=== PATIENT | male | born 2000 | race Hispanic/Latino ===

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

== ENCOUNTER 2024-09-08 15:07 | Emergency (ER) | payer BC, OTHER ==
[~2024-09-08] VITALS: Ht 180.3 cm; Wt 51.9 kg
--- NOTE | 2024-09-08 15:37 | ERN ---
General Chief Complaint: Nausea,Vomiting,Diarrhea Stated Complaint: NVD History of Present Illness Initial Comments This is a case of a 24-year-old male with no significant past medical history who presented to the ER with the complaints of chills, 3 vomiting episodes, nausea, headache and dizziness since 5 a.m. in the morning. He also mentioned having fever, sore throat, cold, 1 episode of nonbloody diarrhea yesterday night which have subsided now. He also mentions experiencing lower abdominal pain. He denies chest pain, palpitations, burning sensation when urinating/increased frequency of urination, cough, abnormal penile discharge, genital rashes. He admits to using tobacco and marijuana daily. Allergies: Coded Allergies: No Known Drug Allergies (Unverified Allergy, Unknown, 03/03/21) Home Meds Active Scripts Ibuprofen (Ibuprofen) 600 Mg Tablet, 600 MG PO Q6H PRN for PAIN, #15 TAB Prov:ALMA OWEN 03/03/21 Mupirocin (Bactroban 2% Oint) 1 Appl/Gm Oint, 1 APPL TP BID for 10 Days, #30 G Prov:ALMA OWEN 03/03/21 Past Medical History Past Medical History: No Pertinent History Past Surgical History: None Social History Social History: Lives with family ROS Dictation CONSTITUTIONAL: Chills, no fever, no weakness, no diaphoresis, no malaise. HEAD/FACE: No signs of trauma. EENT: No eye pain, no blurred vision, no tearing, no double vision, no ear pain, no ear discharge, no nose pain, no nasal congestion, sore throat or, no throat swelling, no mouth pain. RESPIRATORY: No cough, no orthopnea, no SOB, no stridor, no wheezing. CARDIOVASCULAR: No chest pain, no edema, no palpitations, no syncope. GASTROINTESTINAL/ABDOMINAL: No abdominal pain, no constipation, no diarrhea, no nausea, no vomiting. GENITOURINARY: LOWER ABDOMINAL AND PELVIC pain, No abnormal discharge, no dysuria, no frequent urination, no hematuria. No complaints of pain in the genitals. MUSCULOSKELETAL: No back pain, no gout, no joint pain, no joint swelling, no muscle pain, no muscle stiffness, no neck pain. INTEGUMENTARY: No change in color, no change in hair/nails, no dryness, no lesion, no lumps, no rash. NEUROLOGICAL/PSYCH: No anxiety, not depressed, no emotional problem, no headache, no numbness, no pre-existing deficit, no history of seizures, no tremors, no weakness. HEMATOLOGIC/LYMPHATIC: no history of blood clots, no apparent bleeding, no bruising, glands not swollen. All Systems Negative, Except as Noted. Physical Exam Physical Exam Dictation Physical Exam Dictation VITAL SIGNS: Reviewed. GENERAL APPEARANCE: Alert, oriented x3, no acute distress, underweight HEAD AND FACE: Non-traumatic. EYES: PERRL, pink conjunctivas, eyelid no trauma, anterior chamber clear. EARS: Pinnas intact and no signs of trauma or erythema. Ear canals clear and no discharge. TMs no erythema. NOSE: No discharge, no bleeding. OROPHARYNX: Mouth normal, tongue pink. Pharynx clear, no erythema. Tonsils no exudates, no abscesses noted. Mucous membrane moist. NECK: Supple, non-tender, no thyromegaly, no masses, no JVD, no bruits. BREAST: Deferred. CHEST: No tenderness, no crepitus, no paradoxical movement, no retractions. LUNGS: Clear, well-ventilated, symmetric, no rales, no wheezing, no rhonchi, no stridor, good breath sounds bilaterally. HEART: Regular rate, regular rhythm, no murmur, no gallops. VASCULAR: No peripheral edema. ABDOMEN: Soft, positive bowel sounds, nondistended, no guarding, nontender, no rebound RECTAL: Deferred. GENITAL: Deferred. NEUROLOGICAL: Normal speech, gross motor function intact, gross sensory function intact. MUSCULOSKELETAL: Neck nontender, full range of motion, back nontender, full range of motion. EXTREMITIES: Nontender, full range of motion. SKIN: Color pink, dry, no turgor, no rash, no lacerations, no abrasions, no contusions. LYMPHATICS: Deferred. Results Laboratory and Microbiology Lab and Micro Result Laboratory Tests Test 09/08/24 15:32 09/08/24 17:10 White Blood Count 11.3 K/uL (4.8-10.8) H Red Blood Count 5.49 MIL/uL (4.50-6.20) Hemoglobin 16.8 g/dL (14.0-18.0) Hematocrit 48.1 % (42-54) Mean Corpuscular Volume 87.6 fL (79-99) Mean Corpuscular Hemoglobin 30.6 pg (27.0-33.0) Mean Corpuscular Hemoglobin Concent 34.9 g/dL (32.0-36.0) Red Cell Distribution Width 12.2 % (11.0-15.5) Platelet Count 253 K/uL (130-400) Mean Platelet Volume 10.8 fL (7.5-10.5) H Immature Granulocyte % (Auto) 0.4 % (0-1) Neutrophils (%) (Auto) 90.8 % (40.0-77.0) H Lymphocytes (%) (Auto) 4.9 % (21.0-51.0) L Monocytes (%) (Auto) 2.7 % (3.0-13.0) L Eosinophils (%) (Auto) 0.4 % (0.0-8.0) Basophils (%) (Auto) 0.8 % (0.0-5.0) Neutrophils # (Auto) 10.3 K/uL (1.8-7.7) H Lymphocytes # (Auto) 0.6 K/uL (1.0-4.8) L Monocytes # (Auto) 0.3 K/uL (0.1-1.0) Eosinophils # (Auto) 0.05 K/uL (0.00-0.70) Basophils # (Auto) 0.09 K/uL (0.00-0.20) Absolute Immature Granulocyte (auto 0.04 K/uL (0-1) Nucleated Red Blood Cells 0.0 % (0.0-0.19) White Cell Morphology Comment See comments Sodium Level 142 mmol/L (136-145) Potassium Level 4.8 mmol/L (3.5-5.1) Chloride Level 103 mmol/L (101-111) Carbon Dioxide Level 28 mmol/L (21-32) Blood Urea Nitrogen 9 mg/dL (7-18) Creatinine 0.8 mg/dL (0.5-1.3) Glomerular Filtration Rate Calc 128 mL/min (>90) Random Glucose 113 mg/dL (70-105) H Total Calcium 10.0 mg/dL (8.5-10.1) Urine Color YELLOW (YELLOW) Urine Appearance CLEAR (CLEAR) Urine pH 6.5 (5.0-8.0) Urine Specific [place] 1.031 (1.001-1.031) Urine Protein 30 mg/dL (NEGATIVE) H Urine Glucose (UA) NEGATIVE mg/dL (NEGATIVE) Urine Ketones 100 mg/dL (NEGATIVE) H Urine Occult Blood NEGATIVE (NEGATIVE) Urine Nitrate NEGATIVE (NEGATIVE) Urine Bilirubin NEGATIVE mg/dL (NEGATIVE) Urine Urobilinogen 0.2 mg/dL (0.2-1.0) Urine Leukocyte Esterase NEGATIVE Clem/uL Urine RBC 2-5 /HPF (0-1) H Urine WBC 2-5 /HPF (0-1) H Urine Squamous Epithelial Cells RARE /HPF (0-2) Urine Bacteria None /HPF (None Seen) Urine Opiates Screen NEGATIVE (NEGATIVE) Urine Barbiturates Screen NEGATIVE (NEGATIVE) Urine Phencyclidine Screen NEGATIVE (NEGATIVE) Urine Amphetamines Screen NEGATIVE (NEGATIVE) Urine Benzodiazepines Screen NEGATIVE (NEGATIVE) Urine Cocaine Screen NEGATIVE (NEGATIVE) Urine Marijuana (THC) Screen POSITIVE (NEGATIVE) H MDM MDM Potential differential diagnoses include: Gastroenteritis Substance abuse UTI Assessment: We will order CBC to rule any anemia, infections and to evaluate the overall health of the patient. BMP was ordered in order to assess various electrolytes, kidney function, liver function ,protein levels and blood glucose levels, urinalysis. We will order 1 L NS for hydration and Zofran IV for nausea. I will re-evaluate the patient after treatment and diagnostic exams have returned to determine whether they require further testing, can be safely discharged home, or need admission for further treatment and evaluation. Given the social determinants of health affecting care, including literacy, access to medical care, prescription drug management, and raez-[id number] drugs, I will ensure that treatment plans are tailored accordingly. Revaluation : Patient is awake alert and oriented. Hemodynamically stable. He states that he feels better and his symptoms have improved. Labs CBC, BMP are unremarkable. Urinalysis negative for leukocyte esterase. Disposition: Patient is being discharged home with prescription of Zofran 4 mg p.o. p.r.n. for nausea Advised to Follow up with PCP within 2-3 days Drink plenty of fluids such as water, clear broth. Avoid caffeine and alcohol Start with a bland, easily digestible foods and advance diet as tolerated Avoid fatty, fried or spicy foods until symptoms resolve Use [id number]-[id number] medications p.r.n. like acetaminophen for pain/fever Seek medical attention if symptoms worsen or new symptoms appear such as severe abdominal pain, fever, blood in vomit or stool, inability to keep fluids down ED Course Orders Procedure Category Date Status Time Cbc With Differential LAB 09/08/24 Complete 15:24 Basic Metabolic Panel LAB 09/08/24 Complete 15:24 Urinalysis Profile LAB 09/08/24 Complete 15:24 Ondansetron 4mg Inj PHA 09/08/24 In Process (Zofran 4mg Inj) 15:30 0.9%Nacl 1000ml (Ns PHA 09/08/24 In Process 1000ml) 15:30 Drug Screen Urine LAB 09/08/24 Complete 15:24 Current Medications Medications (Trade) Dose Ordered Sig/Chaya Route PRN Reason Start Time Stop Time Status Last Admin Dose Admin Ondansetron HCl (zoFRAN 4MG INJ) 4 mg ONCE IVP 09/08/24 15:30 09/08/24 21:30 09/08/24 17:31 Sodium Chloride 1,000 ml @ 0 mls/hr ONCE IV 09/08/24 15:30 09/09/24 15:29 09/08/24 17:32 Vital Signs Date Time Temp Pulse Resp B/P (MAP) Pulse Ox O2 Delivery O2 Flow Rate FiO2 09/08/24 18:03 99.0 69 20 128/66 100 Room Air* 0 21 09/08/24 15:08 98.2 73 16 111/75 09/08/24 15:08 98.2 73 16 111/75 98 Room Air* 0 21 DX & DISP Disposition: Discharge Departure Impression: Primary Impression: Cannabis hyperemesis syndrome concurrent with and due to cannabis abuse Critical Time: 30 minutes Condition: Stable Scripts Ondansetron (Ondansetron Odt) 4 Mg Tab.rapdis 1 TAB PO Q6HPRN PRN for nausea/vomiting for 4 Days, #16 TAB 0 Refills Prov: TULIO CLARK MD 09/08/24 Referrals: SELF,REFERRAL (PCP) ATTESTATION BY PHYSICIAN I have seen and examined the patient. I reviewed the documentation, medical decision making, and treatment plan as noted by the resident above. I agree with the findings and plan of care. TULIO ZAMORA MD, MD Sep 08, 2024 15:37
[2024-09-08 15:41] LABS: BASOPHILS # (AUTO) 0.09 K/uL (0.00-0.20); BASOPHILS % (AUTO) 0.8 % (0.0-5.0); EOSINOPHILS # (AUTO) 0.05 K/uL (0.00-0.70); EOSINOPHILS % (AUTO) 0.4 % (0.0-8.0); HEMATOCRIT 48.1 % (42-54); IMMATURE GRANULOCYTE ABSOLUTE 0.04 K/uL (0-1); LYMPHOCYTES # (AUTO) 0.6 K/uL (1.0-4.8); LYMPHOCYTES % (AUTO) 4.9 % (21.0-51.0); MEAN CORPUSCULAR HEMOGLOBIN 30.6 pg (27.0-33.0); MEAN CORPUSCULAR HGB CONC 34.9 g/dL (32.0-36.0); MEAN CORPUSCULAR VOLUME 87.6 fL (79-99); MONOCYTES # (AUTO) 0.3 K/uL (0.1-1.0); MONOCYTES % (AUTO) 2.7 % (3.0-13.0); NEUTROPHILS # (AUTO) 10.3 K/uL (1.8-7.7); NEUTROPHILS % (AUTO) 90.8 % (40.0-77.0); PLATELET COUNT (AUTO) 253 K/uL (130-400); RED BLOOD CELL COUNT(AUTO) 5.49 MIL/uL (4.50-6.20); RED CELL DISTRIBUTION WIDTH 12.2 % (11.0-15.5); WHITE BLOOD COUNT (AUTO) 11.3 K/uL (4.8-10.8)
[2024-09-08 15:49] LABS: CREATININE 0.8 mg/dL (0.5-1.3); POTASSIUM 4.8 mmol/L (3.5-5.1)
[2024-09-08 17:31] LABS: APPEARANCE,URINE CLEAR (CLEAR); BILIRUBIN,URINE NEGATIVE (NEGATIVE); COLOR,URINE YELLOW (YELLOW); GLUCOSE, URINE (UA) NEGATIVE (NEGATIVE); KETONES,URINE 100 mg/dL (NEGATIVE); LEUKOCYTE ESTERASE ,URINE NEGATIVE Leu/uL (NEGATIVE); NITRATE,URINE NEGATIVE (NEGATIVE); OCCULT BLOOD,URINE NEGATIVE (NEGATIVE); PH,URINE 6.5 (5.0-8.0); PROTEIN,URINE 30 mg/dL (NEGATIVE); UROBILINOGEN,URINE 0.2 mg/dL (0.2-1.0)
[2024-09-08] MEDS: ondanSETRON 4MG INJ IVP SCH (17:31)
[2024-09-08] MEDS: 0.9%NACL 1000ML 1,000 ML IV SCH (17:32)
[2024-09-08 17:39] LABS: AMPHET/METH SCREEN,URINE NEGATIVE (NEGATIVE); BARBITURATE SCREEN, URINE NEGATIVE (NEGATIVE); BENZODIAZEPINES SCREEN,URINE NEGATIVE (NEGATIVE); CANNABINOID SCREEN,URINE POSITIVE (NEGATIVE); COCAINE SCREEN,URINE NEGATIVE (NEGATIVE); OPIATE SCREEN,URINE NEGATIVE (NEGATIVE); PHENCYCLIDINE SCREEN,URINE NEGATIVE (NEGATIVE)
[2024-09-08 17:56] LABS: ADD UA MICROSCOPIC YES
[2024-09-08 17:59] LABS: MUCUS,URINE FEW LPF (None Seen); SQUAMOUS EPITHELIAL CELL,UR RARE /HPF (0-2)
[2024-09-08 18:03] VITALS: BP 128/66; PULSE 69; RESP 20; TEMP 99; O2SAT 100
[2024-09-08] MEDS ORDERED: ONDA-243 PO (18:18)
== END 2024-09-08 18:36 | disposition home or self-care (01) ==
LOC: EDH 15:07
DX: R11.2 Nausea with vomiting, unspecified (principal); F12.10 Cannabis abuse, uncomplicated; Z79.899 Other long term (current) drug therapy
CPT/HCPCS: 99284; 96374; 96361; 80048; 80305; 85025; 36415; 81001; J7030; J2405

== ENCOUNTER 2025-07-17 14:39 | Emergency (ER) | payer BC ==
[~2025-07-17] VITALS: Ht 180.3 cm; Wt 54.4 kg
[~2025-07-17 14:39] MED LIST changes: +IBUP-1492 PO; -IBUP-2070 PO; +ONDA-243 PO
[2025-07-17 14:42] VITALS: PULSE 71
[2025-07-17 15:35] LABS: IMMATURE GRANULOCYTE ABSOLUTE 0.01 K/uL (0-1); NUCLEATED RED BLOOD CELLS 0.0 % (0.0-0.19); PLATELET COUNT (AUTO) 251 K/uL (130-400); RED BLOOD CELL COUNT(AUTO) 5.04 MIL/uL (4.50-6.20); RED CELL DISTRIBUTION WIDTH 12.6 % (11.0-15.5); WHITE BLOOD COUNT (AUTO) 7.5 K/uL (4.8-10.8)
[2025-07-17 15:47] LABS: CREATININE 0.9 mg/dL (0.5-1.3); GLOMERULAR FILTR. RATE CALC 123.0 mL/min (>90); GLUCOSE,RANDOM 133.0 mg/dL (70-105); SODIUM SERUM 135.0 mmol/L (136-145); UREA NITROGEN, BLOOD 13.0 mg/dL (7-18)
[2025-07-17 15:51] LABS: ASPARTATE AMINOTRANSFERASE 18.0 U/L (10-37); TOTAL PROTEIN, SERUM 8.0 g/dL (6.0-8.3)
[2025-07-17 16:08] VITALS: BP 122/70; RESP 17; TEMP 97.1; O2SAT 99
--- NOTE | 2025-07-17 16:09 | HMCIMG ---
EXAM: US Abdomen, Right Upper Quadrant. CLINICAL HISTORY: ruq pain TECHNIQUE: Right upper quadrant sonography performed with image documentation. COMPARISON: None provided. FINDINGS: LIVER: Liver measures 14 cm. Normal in size and echogenicity. No mass. GALLBLADDER: The gallbladder appears distended, approximately measuring 10.3 cm in length. Multiple small gallstones present, a non-mobile stone seen at the gallbladder neck. Sludge present. Wall thickness measures 3 mm. COMMON BILE DUCT: The CBD measures 3 mm. PANCREAS: The visualized pancreas appears within normal limits. The distal pancreas is obscured by bowel gas. RIGHT KIDNEY: The right kidney measures 10 x 3.5 x 3.5 cm. Normal renal contours. No renal mass or calculus. No hydronephrosis. IMPRESSION: 1. Cholelithiasis with gallbladder distension, sludge, and a small non-mobile stone at the gallbladder neck, potentially obstructive. /Harpreet
[2025-07-17] MEDS ORDERED: KETO10TA2 PO (16:14)
[2025-07-17] MEDS ORDERED: FAMO-136 PO (16:14)
--- NOTE | 2025-07-17 16:15 | ERN ---
ED Note History of Present Illness Stated Complaint: ABDOMINAL PAIN Chief Complaint: Abdominal Pain Time Seen by MD: 14:42 Time Seen by Midlevel: 14:48 Dictation: 25-year-old male coming in with complaints of epigastric pain onset about four five of the morning. Patient states he ate Tamales 3:00 a.m. and woke up with severe epigastric pain. Patient has was told him April that he had gallbladder stones. Denies having any nausea or vomiting or diarrhea. Patient states he took Tylenol or Motrin [id number] prior to arrival and states that helped with the his pain. Allergies: Coded Allergies: No Known Drug Allergies (Unverified Allergy, Unknown, 03/03/21) Home Meds Active Scripts Ondansetron (Ondansetron Odt) 4 Mg Tab.rapdis, 1 TAB PO Q6HPRN PRN for nausea/vomiting for 4 Days, #16 TAB 0 Refills Prov:TULIO CLARK MD 09/08/24 Ibuprofen (Ibuprofen) 600 Mg Tablet, 600 MG PO Q6H PRN for PAIN, #15 TAB Prov:ALMA OWEN 03/03/21 Mupirocin (Bactroban 2% Oint) 1 Appl/Gm Oint, 1 APPL TP BID for 10 Days, #30 G Prov:ALMA OWEN 03/03/21 Past Medical History Past Medical History: No Pertinent History Surgical History: None Social History: Lives with family Review of System Dictation Constitutional: Negative for fever,chills, and weight loss Eyes: Negative for injury, pain,redness, and discharge ENT: Negative for injury,pain or swelling Cardiovascular: Negative for chest pain, palpitations, and edema Respiratory: Negative for shortness of breath, cough, and wheezing, Abdomen/GI: Epigastric pain Back: Negative for injury and pain : Negative for injury, bleeding and discharge MS/Extremity: Negative for injury and deformity Skin: Negative for rash, and discoloration Neuro: Negative for headache, weakness, numbness, tingling, and seizure Psych: Negative for suicide ideation, homicidal ideation, and hallucinations Review of Systems: was completed Initial Vital Sign VS Vital Signs Date Time Temp Pulse Resp B/P (MAP) Pulse Ox O2 Delivery O2 Flow Rate FiO2 07/17/25 14:42 97.5 71 16 129/72 99 Room Air 0 Physical Exam Dictation General: awake, alert, NAD Head/Face: Normocephalic, atraumatic Eyes: PERRL, EOMI, vision at baseline ENT: oral cavity clear, TMs clear, no signs of infection Neck: Trachea midline, supple, no nuchal rigidity Cardiovascular: RRR, normal S1/S2, No MRGs, no JVD Respiratory: CTAB, no respiratory distress, No rales or wheezes Abdomen: Soft, non-tender, non-distended, normal bowel sounds, no guarding or rebound., negative Steinberg sign Skin: Warm, dry, normal turgor, no rash MS/Extremity: Pulses equal, no cyanosis, neurovascular intact, FROM Neuro: COAx4, GCS 15, strength 5/5, CN 2-12 intact, normal cerebellar exam, normal gait, Psych: Normal behavior, mood, and affect normal Results (Laboratory/Radiology) Laboratory/Radiology Laboratory Tests Test 07/17/25 15:28 White Blood Count 7.5 K/uL (4.8-10.8) Red Blood Count 5.04 MIL/uL (4.50-6.20) Hemoglobin 15.3 g/dL (14.0-18.0) Hematocrit 43.7 % (42-54) Mean Corpuscular Volume 86.7 fL (79-99) Mean Corpuscular Hemoglobin 30.4 pg (27.0-33.0) Mean Corpuscular Hemoglobin Concent 35.0 g/dL (32.0-36.0) Red Cell Distribution Width 12.6 % (11.0-15.5) Platelet Count 251 K/uL (130-400) Mean Platelet Volume 10.8 fL (7.5-10.5) H Immature Granulocyte % (Auto) 0.1 % (0-1) Neutrophils (%) (Auto) 75.6 % (40.0-77.0) Lymphocytes (%) (Auto) 14.5 % (21.0-51.0) L Monocytes (%) (Auto) 6.1 % (3.0-13.0) Eosinophils (%) (Auto) 2.8 % (0.0-8.0) Basophils (%) (Auto) 0.9 % (0.0-5.0) Neutrophils # (Auto) 5.7 K/uL (1.8-7.7) Lymphocytes # (Auto) 1.1 K/uL (1.0-4.8) Monocytes # (Auto) 0.5 K/uL (0.1-1.0) Eosinophils # (Auto) 0.21 K/uL (0.00-0.70) Basophils # (Auto) 0.07 K/uL (0.00-0.20) Absolute Immature Granulocyte (auto 0.01 K/uL (0-1) Nucleated Red Blood Cells 0.0 % (0.0-0.19) Sodium Level 135 mmol/L (136-145) L Potassium Level 3.9 mmol/L (3.5-5.1) Chloride Level 101 mmol/L (101-111) Carbon Dioxide Level 27 mmol/L (21-32) Blood Urea Nitrogen 13 mg/dL (7-18) Creatinine 0.9 mg/dL (0.5-1.3) Glomerular Filtration Rate Calc 123 mL/min (>90) Random Glucose 133 mg/dL (70-105) H Total Calcium 9.1 mg/dL (8.5-10.1) Total Bilirubin 0.6 mg/dL (0.2-1.0) Direct Bilirubin 0.1 mg/dL (0.0-0.3) Aspartate Amino Transf (AST/SGOT) 18 U/L (10-37) Alanine Aminotransferase (ALT/SGPT) 16 U/L (12-78) Alkaline Phosphatase 68 U/L (50-136) Total Protein 8.0 g/dL (6.0-8.3) Albumin 4.4 g/dL (3.5-5.0) Lipase 26 U/L (16-77) Labs Reviewed?: Yes ED Course ED Course Orders Procedure Category Date Status Time Cbc With Differential LAB 07/17/25 Complete 15:18 Basic Metabolic Panel LAB 07/17/25 Complete 15:18 Hepatic Function Panel LAB 07/17/25 Complete 15:18 Lipase LAB 07/17/25 Complete 15:18 Us Abdominal Ruq\Ltd US 07/17/25 Taken 15:18 Vital Signs Date Time Temp Pulse Resp B/P (MAP) Pulse Ox O2 Delivery O2 Flow Rate FiO2 07/17/25 14:42 97.5 71 16 129/72 99 Room Air 0 Medical Decision Making MDM MDM: 25-year-old male coming in with complaints of epigastric pain onset about four five of the morning. Patient states he ate Tamales 3:00 a.m. and woke up with severe epigastric pain. Patient has was told him April that he had gallbladder stones. Denies having any nausea or vomiting or diarrhea. Patient states he took Tylenol or Motrin [id number] prior to arrival and states that helped with the his pain. Blood work is unremarkable. No transaminitis, lipase with the Mirena. Preliminary report of the ultrasound shows a gallbladder wall measuring 3 mm, nonmobile stone at the neck with sludge, and appears distended at 10.3 cm. 1610 discussed case with the general surgeon on-call Dr. Lees, recommended I can discharge this patient home and follow up outpatient to his office. This was discussed with the patient, educated to follow up with the general surgeon outpatient, avoid spicy, greasy foods return to the hospital as needed. Patient verbalized understanding, answered all questions. Differential diagnosis: Cholecystitis, cholelithiasis, dryness Rationale: Tests considered and ordered secondary to shared decision making include: Previous outside records reviewed: Old ER visits. Risk of complication and/or morbidity or mortality of patient management: None Medications-Per medication reconciliation Need for hospitalization: Patient does not meet criteria for hospitalization. Need for emergency major/minor surgery: No There are no social concerns with this patient. Prescription drug management Prescriptions will include symptomatic care Patient's prior external medical records from other ER visits were reviewed by me as indicated. Prior testing and results from previous visits were reviewed. Prior tests were taken into account with medical decision making and resource utilization, independent historian/historians were used to obtain complete medical history. I independently interpreted the test that were performed, results were reviewed by me and considered findings on radiology if ordered. Medical management and examination interpretation discussions were had by me with other qualified healthcare professionals as indicated for the patient's care. DX & DISP Disposition: Discharge Departure Impression: Primary Impression: Biliary colic Condition: Stable Scripts Famotidine (Pepcid) 20 Mg Tablet 1 TAB PO BID for 30 Days, #60 TAB 0 Refills Prov: DENT,ABDULLAHI CIRCUIT WALKER 07/17/25 Ketorolac Tromethamine (Ketorolac Tromethamine) 10 Mg Tablet 1 TAB PO Q6HPRN PRN for pain for 5 Days, #20 TAB 0 Refills Prov: ABDULLAHI DENT CNP 07/17/25 Additional Instructions: Avoid any spicy, greasy, or fatty foods. Take medications as prescribed. And follow up with the general surgeon outpatient. Referrals: SELF,REFERRAL (PCP) Time of Disposition: 16:14 I have reviewed the case, and I agree with, Diagnosis and Plan ABDULLAHI DENT CNP Jul 17, 2025 16:15
== END 2025-07-17 16:47 | disposition home or self-care (01) ==
LOC: EDH 14:39
DX: K80.50 Calculus of bile duct without cholangitis or cholecystitis without obstruction (principal)
CPT/HCPCS: 36415; 76705; 80048; 80076; 83690; 85025; 99284